=== PATIENT | male | born 1970 | race Two or more races ===

== ENCOUNTER → 2017-08-26 | Outpatient (CLI) | payer MEDICAID | END | disposition home or self-care (01) | LOC: Rad HDHVI 08:43 | PROVIDERS: ATTEND Internal Medicine | DX: I07.1 Rheumatic tricuspid insufficiency (principal); R94.31 Abnormal electrocardiogram [ECG] [EKG]; R53.1 Weakness | CPT/HCPCS: 93306 ==

== ENCOUNTER → 2019-04-25 | Outpatient (CLI) | payer MEDICAID | END | disposition home or self-care (01) | LOC: Rad HDHVI 10:47 | PROVIDERS: ATTEND Internal Medicine | DX: R94.31 Abnormal electrocardiogram [ECG] [EKG] (principal); R53.1 Weakness; I10 Essential (primary) hypertension | CPT/HCPCS: 93880 ==

== ENCOUNTER 2020-03-07 16:36 | Inpatient (IN) | payer MEDICARE, MEDICAID ==
[~2020-03-07] VITALS: Ht 172.7 cm; Wt 82.3 kg
[2020-03-07 18:31] LABS: Basophils # (auto) 0.1 10 ^3/uL (0-0.2); Eosinophils # (auto) 0.2 10 ^3/uL (0-0.8); Lymphocytes # (auto) 1.6 10 ^3/uL (0.4-5.4)
[2020-03-07 18:33] LABS: Basophils % (auto) 0.7 % (0.0-2.0); Eosinophils % (auto) 1.3 % (0.0-7.0); Hematocrit 44.1 % (41.0-53.0); Hemoglobin 14.5 g/dL (13.5-17.5); Mean Corpuscular Hemoglobin 29.7 pg (28.0-32.0); Mean Corpuscular Hgb Conc. 32.8 g/dL (32.0-36.0); Mean Corpuscular Volume 90.4 fL (80.0-100.0); Monocytes # (auto) 0.9 10 ^3/uL (0-1.3); Monocytes % (auto) 6.9 % (0.0-12.0); Neutrophils # (auto) 10.5 10 ^3/uL (1.6-8.6); Neutrophils % (auto) 79.1 % (37.0-80.0); Red Blood Cells 4.87 10^6/uL (4.5-5.90); Red Cell Distribution Width 14.1 % (11.8-14.3); White Blood Cell 13.3 10^3/uL (4.4-10.8)
[2020-03-07 18:47] LABS: Albumin 2.9 g/dL (3.4-5.0); BUN/Creatinine Ratio 16.1; Calcium 9.7 mg/dL (8.5-10.1); Potassium 4.1 mmol/L (3.5-5.1)
[2020-03-07 18:49] LABS: Bilirubin, Total 0.6 mg/dL (0.2-1.0); Total Protein 8.9 g/dL (6.4-8.2)
[2020-03-07] MEDS ORDERED: DOXYCYCLINE 100MG/250ML 250 ML IV ONE (22:15)
[2020-03-07] MEDS ORDERED: DexAMETHasone SOD PHOS 10MG/1ML VIAL INJ IV ONE (22:15)
[2020-03-08] MEDS ORDERED: ONDANSETRON HCL 4 MG/2 ML VIAL ONE (00:05)
[2020-03-08] MEDS ORDERED: MORPHINE SULFATE INJECTION 2 MG/ML SYRG ONE (00:05)
[2020-03-08] MEDS ORDERED: DEXTROSE (50%) 50ML SYRG IV PRN (00:30)
[2020-03-08] MEDS ORDERED: TEMAZEPAM 15 MG CAP PO PRN (00:30)
[2020-03-08] MEDS ORDERED: ACETAMINOPHEN 325 MG TAB PO PRN (00:30)
[2020-03-08] MEDS ORDERED: NITROGLYCERIN 0.4 MG SL TAB SL PRN (00:30)
[2020-03-08] MEDS ORDERED: ONDANSETRON HCL 4 MG/2 ML VIAL IV PRN (00:30)
[2020-03-08] MEDS ORDERED: MORPHINE SULFATE INJECTION 2 MG/ML SYRG IV PRN (00:30)
[2020-03-08] MEDS ORDERED: ONDANSETRON HCL 4 MG/2 ML VIAL IV ONE (00:45)
[2020-03-08] MEDS ORDERED: MORPHINE SULFATE INJECTION 2 MG/ML SYRG IV ONE (00:45)
[2020-03-08 01:28] LABS: Magnesium 2.2 mg/dL (1.6-2.6)
[2020-03-08 01:37] LABS: CRP High Sensitivity 8.53 mg/dL (< 0.3)
[2020-03-08] MEDS: InsuLIN REG 1unit/0.01ml Soln (100units/ml) SC SCH ×3 (07:00→22:00)
[2020-03-08] MEDS ORDERED: ENOXAPARIN SOD 40 MG/0.4 ML SYRINGE SC SCH (10:00)
[2020-03-08] MEDS ORDERED: CHOLECALCIFEROL (VITD3) 2,000 UNIT CAP/TAB PO SCH (10:00)
[2020-03-08] MEDS ORDERED: DOXYCYCLINE 100MG/250ML 250 ML IV SCH (10:00)
[2020-03-08] MEDS: DexAMETHasone SOD PHOS 10MG/1ML VIAL INJ IV SCH (10:08)
[2020-03-08] MEDS: amLODIPine BESYLATE 5 MG TAB PO SCH (10:08)
[2020-03-08] MEDS: ZINC SULFATE 220mg CAP or TAB PO SCH (10:08)
[2020-03-08] MEDS: ASCORBIC ACID 1,000 MG TAB PO SCH (10:08)
[2020-03-08] MEDS: ACCU-CHEK COMFORT CURVE STRIP VI SCH ×3 (10:09→19:45)
[2020-03-08] MEDS ORDERED: REMDESIVIR PER PHARMACY 0 ML IV SCH (11:15)
[2020-03-08] MEDS ORDERED: cefTRIAXone 1GM/50ML D5W 50 ML IV ONE (11:15)
[2020-03-08 12:12] LABS: Albumin 2.6 g/dL (3.4-5.0); Calcium 9.9 mg/dL (8.5-10.1); Potassium 4.7 mmol/L (3.5-5.1)
[2020-03-08 12:16] LABS: BUN/Creatinine Ratio 18.8; Bilirubin, Total 0.6 mg/dL (0.2-1.0); Total Protein 8.5 g/dL (6.4-8.2)
[2020-03-08] MEDS ORDERED: FUROSEMIDE 20 MG/2 ML VIAL IV ONE (14:45)
[2020-03-08] MEDS ORDERED: PIPERACILLIN-TAZO 4.5GM 100 ML IV ONE (14:45)
[2020-03-08] MEDS ORDERED: PIPERACILLIN-TAZO 4.5GM 100 ML IV SCH (22:00)
[2020-03-08] MEDS ORDERED: DOXYCYCLINE 100 MG TAB/CAP PO SCH (22:00)
[2020-03-08] MEDS: ENOXAPARIN SOD 40 MG/0.4 ML SYRINGE SC SCH (23:45)
[2020-03-08] MEDS: ERGOCALCIFEROL 50,000 UNIT(1.25MG) CAP PO SCH (23:49)
[2020-03-09] MEDS: ACCU-CHEK COMFORT CURVE STRIP VI SCH ×5 (00:06→17:21)
[2020-03-09] MEDS: InsuLIN REG 1unit/0.01ml Soln (100units/ml) SC SCH ×5 (00:06→22:09)
[2020-03-09 05:00] VITALS: BP 118/88
[2020-03-09 06:04] VITALS: BP 143/92
[2020-03-09] MEDS ORDERED: ASPI-543 PO (06:22)
[2020-03-09] MEDS ORDERED: FENO134C PO (06:22)
[2020-03-09] MEDS ORDERED: ALLO300T2 PO (06:22)
[2020-03-09] MEDS ORDERED: LISI20TA28 PO (06:22)
[2020-03-09] MEDS ORDERED: AZIT250T8 PO (06:22)
[2020-03-09] MEDS ORDERED: METF-371 PO (06:22)
[2020-03-09] MEDS ORDERED: AML5T PO (06:22)
[2020-03-09 08:00] VITALS: BP 114/81
[2020-03-09 08:50] LABS: Eosinophils # (auto) 0 10 ^3/uL (0-0.8); Neutrophils # (auto) 17.6 10 ^3/uL (1.6-8.6)
[2020-03-09 08:51] LABS: Basophils # (auto) 0.2 10 ^3/uL (0-0.2); Basophils % (auto) 0.8 % (0.0-2.0); Hematocrit 41.6 % (41.0-53.0); Hemoglobin 13.9 g/dL (13.5-17.5); Lymphocytes # (auto) 1.5 10 ^3/uL (0.4-5.4); Lymphocytes % (auto) 7.1 % (10.0-50.0); Mean Corpuscular Hemoglobin 29.6 pg (28.0-32.0); Mean Corpuscular Hgb Conc. 33.4 g/dL (32.0-36.0); Mean Corpuscular Volume 88.4 fL (80.0-100.0); Monocytes # (auto) 1.3 10 ^3/uL (0-1.3); Monocytes % (auto) 6.4 % (0.0-12.0); Neutrophils % (auto) 85.7 % (37.0-80.0); Nucleated Red Blood Cells % 0.1 %; Red Blood Cells 4.71 10^6/uL (4.5-5.90); Red Cell Distribution Width 13.9 % (11.8-14.3); White Blood Cell 20.5 10^3/uL (4.4-10.8)
[2020-03-09] MEDS ORDERED: cefTRIAXone 1GM/50ML D5W 50 ML IV SCH (09:00)
[2020-03-09 09:06] LABS: Albumin 2.7 g/dL (3.4-5.0); Potassium 4.4 mmol/L (3.5-5.1)
[2020-03-09 09:10] LABS: BUN/Creatinine Ratio 23.1; Bilirubin, Total 0.7 mg/dL (0.2-1.0); Total Protein 8.7 g/dL (6.4-8.2)
[2020-03-09] MEDS: DexAMETHasone SOD PHOS 10MG/1ML VIAL INJ IV SCH (11:19)
[2020-03-09] MEDS: FUROSEMIDE 20 MG/2 ML VIAL IV SCH (11:20)
[2020-03-09] MEDS: ZINC SULFATE 220mg CAP or TAB PO SCH (11:21)
[2020-03-09] MEDS: ASCORBIC ACID 1,000 MG TAB PO SCH (11:22)
[2020-03-09] MEDS: amLODIPine BESYLATE 5 MG TAB PO SCH (11:22)
[2020-03-09] MEDS: ENOXAPARIN SOD 40 MG/0.4 ML SYRINGE SC SCH ×2 (11:23→22:11)
[2020-03-09 11:35] LABS: Urine WBC None Seen /hpf (0 - 3)
[2020-03-09 11:57] LABS: Urine Amorphous Crystal FEW /hpf (None Seen); Urine Bacteria NONE SEEN /hpf (None Seen); Urine Blood Negative /uL (Negative); Urine Mucus FEW (None Seen); Urine Specific Gravity 1.018 (1.001-1.035)
[2020-03-09 12:00] LABS: Alcohol, Urine < 3.0 mg/dL (0-10); Amphetamine Screen, Urine NEGATIVE (NEGATIVE); Benzodiazephine Screen, Urine NEGATIVE (NEGATIVE); Cannabinoid Screen, Urine NEGATIVE (NEGATIVE); Cocaine Screen, Urine NEGATIVE (NEGATIVE); Sodium Urine 83 mmol/L (40-220)
[2020-03-09 12:08] LABS: Barbiturate Scree,Urine NEGATIVE (NEGATIVE); Creatinine, Urine 90 mg/dL (30.0-125.0); Opiate Scree,Urine NEGATIVE (NEGATIVE); Phencyclidine Screen, Urine NEGATIVE (NEGATIVE)
[2020-03-09] MEDS ORDERED: PIPERACILLIN-TAZO 4.5GM 100 ML IV ONE (14:45)
[2020-03-09] MEDS ORDERED: DOXYCYCLINE 100 MG TAB/CAP PO ONE (15:00)
[2020-03-09 16:00] VITALS: BP 115/77
[2020-03-09] MEDS ORDERED: REMDESIVIR 200 MG in NS 210ml LOADING DOSE ADULT IV ONE (16:45)
[2020-03-09] MEDS: DOXYCYCLINE 100 MG TAB/CAP PO SCH (22:10)
[2020-03-09] MEDS: PIPERACILLIN-TAZO 4.5GM 100 ML IV SCH (22:10)
[2020-03-09 22:45] VITALS: BP 109/78
[2020-03-10] VITALS: BP 99/61
[2020-03-10 04:44] VITALS: BP 105/71
[2020-03-10] MEDS: PIPERACILLIN-TAZO 4.5GM 100 ML IV SCH ×3 (06:16→22:00)
[2020-03-10] MEDS: InsuLIN REG 1unit/0.01ml Soln (100units/ml) SC SCH ×4 (06:16→22:04)
[2020-03-10] MEDS: ACCU-CHEK COMFORT CURVE STRIP VI SCH ×4 (06:16→22:01)
[2020-03-10 06:20] LABS: INR 1.12 (0.9-1.15)
[2020-03-10 06:28] LABS: Potassium 4.5 mmol/L (3.5-5.1)
[2020-03-10 06:49] LABS: Albumin 2.3 g/dL (3.4-5.0); BUN/Creatinine Ratio 24.7; Bilirubin, Total 0.7 mg/dL (0.2-1.0); Calcium 10.2 mg/dL (8.5-10.1); Total Protein 8.2 g/dL (6.4-8.2)
[2020-03-10 08:00] VITALS: BP 102/74
[2020-03-10] MEDS: FUROSEMIDE 20 MG/2 ML VIAL IV SCH (09:34)
[2020-03-10] MEDS: DexAMETHasone SOD PHOS 10MG/1ML VIAL INJ IV SCH (09:34)
[2020-03-10] MEDS: ZINC SULFATE 220mg CAP or TAB PO SCH (09:34)
[2020-03-10] MEDS: ENOXAPARIN SOD 40 MG/0.4 ML SYRINGE SC SCH ×2 (09:35→22:01)
[2020-03-10] MEDS: ASCORBIC ACID 1,000 MG TAB PO SCH (09:35)
[2020-03-10] MEDS: amLODIPine BESYLATE 5 MG TAB PO SCH (09:35)
[2020-03-10] MEDS: DOXYCYCLINE 100 MG TAB/CAP PO SCH ×2 (09:35→22:00)
[2020-03-10 16:00] VITALS: BP 116/75
[2020-03-10] MEDS: REMDESIVIR 100 MG in SODIUM CHL 0.9% 250 ML IV SCH (16:38)
[2020-03-11] VITALS: BP 111/80
[2020-03-11 02:54] VITALS: BP 118/82
[2020-03-11 03:11] VITALS: BP 117/81
[2020-03-11 04:06] VITALS: BP 101/66
[2020-03-11] MEDS: PIPERACILLIN-TAZO 4.5GM 100 ML IV SCH ×3 (05:49→21:57)
[2020-03-11 06:29] LABS: Potassium 3.8 mmol/L (3.5-5.1)
[2020-03-11] MEDS: ACCU-CHEK COMFORT CURVE STRIP VI SCH ×4 (06:32→21:58)
[2020-03-11] MEDS: InsuLIN REG 1unit/0.01ml Soln (100units/ml) SC SCH ×4 (06:37→21:59)
[2020-03-11 06:47] LABS: Albumin 2.4 g/dL (3.4-5.0); BUN/Creatinine Ratio 30.1; Bilirubin, Total 0.8 mg/dL (0.2-1.0); Calcium 10.4 mg/dL (8.5-10.1); Total Protein 8.2 g/dL (6.4-8.2)
[2020-03-11 08:00] VITALS: BP 119/73
[2020-03-11] MEDS: DOXYCYCLINE 100 MG TAB/CAP PO SCH ×2 (10:19→21:58)
[2020-03-11] MEDS: amLODIPine BESYLATE 5 MG TAB PO SCH (10:19)
[2020-03-11] MEDS: ZINC SULFATE 220mg CAP or TAB PO SCH (10:19)
[2020-03-11] MEDS: ENOXAPARIN SOD 40 MG/0.4 ML SYRINGE SC SCH ×2 (10:20→21:58)
[2020-03-11] MEDS: DexAMETHasone SOD PHOS 10MG/1ML VIAL INJ IV SCH (10:20)
[2020-03-11] MEDS: ASCORBIC ACID 1,000 MG TAB PO SCH (10:20)
[2020-03-11] MEDS: REMDESIVIR 100 MG in SODIUM CHL 0.9% 250 ML IV SCH (15:57)
[2020-03-11 16:01] VITALS: BP 126/88
[2020-03-12] VITALS: BP 114/79
[2020-03-12] MEDS: InsuLIN REG 1unit/0.01ml Soln (100units/ml) SC SCH ×4 (06:22→22:00)
[2020-03-12] MEDS: ACCU-CHEK COMFORT CURVE STRIP VI SCH ×4 (06:22→22:00)
[2020-03-12 06:28] LABS: Basophils # (auto) 0 10 ^3/uL (0-0.2); Basophils % (auto) 0.3 % (0.0-2.0); Eosinophils # (auto) 0.1 10 ^3/uL (0-0.8)
[2020-03-12 06:36] LABS: Hematocrit 40.3 % (41.0-53.0); Hemoglobin 13.7 g/dL (13.5-17.5); Lymphocytes % (auto) 14.4 % (10.0-50.0); Mean Corpuscular Hemoglobin 29.7 pg (28.0-32.0); Mean Corpuscular Volume 87.4 fL (80.0-100.0); Monocytes # (auto) 1.4 10 ^3/uL (0-1.3); Monocytes % (auto) 10.1 % (0.0-12.0); Neutrophils # (auto) 10.3 10 ^3/uL (1.6-8.6); Neutrophils % (auto) 74.2 % (37.0-80.0); Red Blood Cells 4.61 10^6/uL (4.5-5.90); White Blood Cell 13.9 10^3/uL (4.4-10.8)
[2020-03-12] MEDS: PIPERACILLIN-TAZO 4.5GM 100 ML IV SCH ×3 (06:52→22:46)
[2020-03-12 06:55] LABS: Potassium 3.6 mmol/L (3.5-5.1)
[2020-03-12 07:08] LABS: Albumin 2.4 g/dL (3.4-5.0); BUN/Creatinine Ratio 27.7; Bilirubin, Total 0.8 mg/dL (0.2-1.0); CRP High Sensitivity 17.2 mg/dL (< 0.3); Calcium 10.1 mg/dL (8.5-10.1); Total Protein 8.2 g/dL (6.4-8.2)
[2020-03-12 08:00] VITALS: BP 123/82
[2020-03-12] MEDS: amLODIPine BESYLATE 5 MG TAB PO SCH (11:18)
[2020-03-12] MEDS: DexAMETHasone SOD PHOS 10MG/1ML VIAL INJ IV SCH (11:18)
[2020-03-12] MEDS: ZINC SULFATE 220mg CAP or TAB PO SCH (11:18)
[2020-03-12] MEDS: ENOXAPARIN SOD 40 MG/0.4 ML SYRINGE SC SCH ×2 (11:19→22:47)
[2020-03-12] MEDS: DOXYCYCLINE 100 MG TAB/CAP PO SCH ×2 (11:19→22:47)
[2020-03-12] MEDS: ASCORBIC ACID 1,000 MG TAB PO SCH (11:19)
[2020-03-12] MEDS: REMDESIVIR 100 MG in SODIUM CHL 0.9% 250 ML IV SCH (15:50)
[2020-03-12] MEDS: guaiFENesin-DM 100/10mg/5ml SYR PO PRN (15:57)
[2020-03-12 16:25] VITALS: BP 115/82
[2020-03-13] VITALS: BP 111/78
[2020-03-13] MEDS: PIPERACILLIN-TAZO 4.5GM 100 ML IV SCH ×3 (05:49→21:08)
[2020-03-13] MEDS: InsuLIN REG 1unit/0.01ml Soln (100units/ml) SC SCH ×4 (06:12→21:07)
[2020-03-13] MEDS: ACCU-CHEK COMFORT CURVE STRIP VI SCH ×4 (06:12→21:08)
[2020-03-13 08:00] VITALS: BP 118/76
[2020-03-13 08:58] LABS: Potassium 3.7 mmol/L (3.5-5.1)
[2020-03-13] MEDS: ZINC SULFATE 220mg CAP or TAB PO SCH (09:48)
[2020-03-13] MEDS: ASCORBIC ACID 1,000 MG TAB PO SCH (09:48)
[2020-03-13] MEDS: DOXYCYCLINE 100 MG TAB/CAP PO SCH ×2 (09:48→21:08)
[2020-03-13] MEDS: amLODIPine BESYLATE 5 MG TAB PO SCH (09:48)
[2020-03-13] MEDS: ENOXAPARIN SOD 40 MG/0.4 ML SYRINGE SC SCH ×2 (09:48→21:08)
[2020-03-13] MEDS: DexAMETHasone SOD PHOS 10MG/1ML VIAL INJ IV SCH (09:48)
[2020-03-13 09:50] LABS: Albumin 2.3 g/dL (3.4-5.0); BUN/Creatinine Ratio 28.8; Bilirubin, Total 0.6 mg/dL (0.2-1.0); Calcium 9.8 mg/dL (8.5-10.1); Total Protein 7.8 g/dL (6.4-8.2)
[2020-03-13 16:00] VITALS: BP 110/79
[2020-03-13] MEDS: REMDESIVIR 100 MG in SODIUM CHL 0.9% 250 ML IV SCH (17:59)
[2020-03-14] VITALS: BP 116/81
[2020-03-14] MEDS: PIPERACILLIN-TAZO 4.5GM 100 ML IV SCH ×3 (06:00→21:25)
[2020-03-14] MEDS: ACCU-CHEK COMFORT CURVE STRIP VI SCH ×4 (06:09→21:26)
[2020-03-14] MEDS: InsuLIN REG 1unit/0.01ml Soln (100units/ml) SC SCH ×4 (06:27→21:24)
[2020-03-14 06:29] LABS: Basophils # (auto) 0.1 10 ^3/uL (0-0.2); Hemoglobin 13.5 g/dL (13.5-17.5); Lymphocytes # (auto) 1.4 10 ^3/uL (0.4-5.4); Monocytes # (auto) 1.2 10 ^3/uL (0-1.3); Neutrophils # (auto) 11.5 10 ^3/uL (1.6-8.6); Nucleated Red Blood Cells % 0.1 %
[2020-03-14 06:31] LABS: Eosinophils # (auto) 0.1 10 ^3/uL (0-0.8); Hematocrit 39.4 % (41.0-53.0); Lymphocytes % (auto) 9.5 % (10.0-50.0); Mean Corpuscular Hemoglobin 29.6 pg (28.0-32.0); Mean Corpuscular Hgb Conc. 34.2 g/dL (32.0-36.0); Mean Corpuscular Volume 86.5 fL (80.0-100.0); Monocytes % (auto) 8.4 % (0.0-12.0); Neutrophils % (auto) 80.1 % (37.0-80.0); Red Blood Cells 4.55 10^6/uL (4.5-5.90); Red Cell Distribution Width 13.9 % (11.8-14.3); White Blood Cell 14.4 10^3/uL (4.4-10.8)
[2020-03-14] MEDS: guaiFENesin-DM 100/10mg/5ml SYR PO PRN (07:40)
[2020-03-14 08:00] VITALS: BP 105/79
[2020-03-14 08:18] LABS: Potassium 3.8 mmol/L (3.5-5.1)
[2020-03-14] MEDS: DOXYCYCLINE 100 MG TAB/CAP PO SCH ×2 (08:53→21:25)
[2020-03-14] MEDS: amLODIPine BESYLATE 5 MG TAB PO SCH (08:53)
[2020-03-14] MEDS: ASCORBIC ACID 1,000 MG TAB PO SCH (08:53)
[2020-03-14] MEDS: ENOXAPARIN SOD 40 MG/0.4 ML SYRINGE SC SCH ×2 (08:54→21:26)
[2020-03-14] MEDS: ZINC SULFATE 220mg CAP or TAB PO SCH (08:54)
[2020-03-14] MEDS: DexAMETHasone SOD PHOS 10MG/1ML VIAL INJ IV SCH (08:54)
[2020-03-14 09:01] LABS: Albumin 2.2 g/dL (3.4-5.0); BUN/Creatinine Ratio 28.4; Bilirubin, Total 0.5 mg/dL (0.2-1.0); Calcium 10.1 mg/dL (8.5-10.1); Total Protein 7.6 g/dL (6.4-8.2)
[2020-03-14] MEDS ORDERED: FUROSEMIDE 20 MG/2 ML VIAL IV ONE (09:15)
[2020-03-14 16:00] VITALS: BP 115/82
[2020-03-15] VITALS: BP 107/83
[2020-03-15] MEDS: ACCU-CHEK COMFORT CURVE STRIP VI SCH ×3 (06:07→17:46)
[2020-03-15] MEDS: PIPERACILLIN-TAZO 4.5GM 100 ML IV SCH ×3 (06:07→22:04)
[2020-03-15] MEDS: InsuLIN REG 1unit/0.01ml Soln (100units/ml) SC SCH ×3 (06:16→17:47)
[2020-03-15 08:00] VITALS: BP 116/81
[2020-03-15] MEDS: ENOXAPARIN SOD 40 MG/0.4 ML SYRINGE SC SCH ×2 (10:01→22:05)
[2020-03-15] MEDS: DOXYCYCLINE 100 MG TAB/CAP PO SCH ×2 (10:01→22:05)
[2020-03-15] MEDS: ZINC SULFATE 220mg CAP or TAB PO SCH (10:01)
[2020-03-15] MEDS: DexAMETHasone SOD PHOS 10MG/1ML VIAL INJ IV SCH (10:01)
[2020-03-15] MEDS: amLODIPine BESYLATE 5 MG TAB PO SCH (10:01)
[2020-03-15] MEDS: ASCORBIC ACID 1,000 MG TAB PO SCH (10:01)
[2020-03-15] MEDS: ERGOCALCIFEROL 50,000 UNIT(1.25MG) CAP PO SCH (15:50)
[2020-03-15 16:00] VITALS: BP 115/87
[2020-03-15] MEDS ORDERED: DEXTROSE (50%) 50ML SYRG IV PRN (17:00)
[2020-03-15] MEDS ORDERED: FUROSEMIDE 20 MG/2 ML VIAL IV ONE (17:00)
[2020-03-15] MEDS: INSULIN LANTUS (GLARGINE) 1 /0.01ml (100units/ml) SC SCH (22:06)
[2020-03-16] VITALS: BP 109/74
[2020-03-16] MEDS: ACCU-CHEK COMFORT CURVE STRIP VI SCH ×4 (00:32→17:14)
[2020-03-16] MEDS: PIPERACILLIN-TAZO 4.5GM 100 ML IV SCH ×3 (06:15→22:36)
[2020-03-16 06:19] LABS: Basophils # (auto) 0.1 10 ^3/uL (0-0.2); Eosinophils # (auto) 0.1 10 ^3/uL (0-0.8); Mean Corpuscular Volume 86.2 fL (80.0-100.0); Neutrophils # (auto) 12.9 10 ^3/uL (1.6-8.6)
[2020-03-16 06:20] LABS: Basophils % (auto) 0.7 % (0.0-2.0); Eosinophils % (auto) 0.8 % (0.0-7.0); Hematocrit 41.8 % (41.0-53.0); Hemoglobin 14.5 g/dL (13.5-17.5); Lymphocytes # (auto) 1.6 10 ^3/uL (0.4-5.4); Lymphocytes % (auto) 10.1 % (10.0-50.0); Mean Corpuscular Hemoglobin 29.9 pg (28.0-32.0); Mean Corpuscular Hgb Conc. 34.7 g/dL (32.0-36.0); Monocytes # (auto) 1.3 10 ^3/uL (0-1.3); Monocytes % (auto) 7.9 % (0.0-12.0); Neutrophils % (auto) 80.5 % (37.0-80.0); Red Blood Cells 4.86 10^6/uL (4.5-5.90); Red Cell Distribution Width 13.8 % (11.8-14.3)
[2020-03-16] MEDS: InsuLIN REG 1unit/0.01ml Soln (100units/ml) SC SCH ×4 (06:36→17:19)
[2020-03-16 06:42] LABS: Potassium 3.8 mmol/L (3.5-5.1)
[2020-03-16 07:09] LABS: BUN/Creatinine Ratio 28.1; Calcium 9.8 mg/dL (8.5-10.1)
[2020-03-16 08:00] VITALS: BP 110/68
[2020-03-16] MEDS: DexAMETHasone SOD PHOS 10MG/1ML VIAL INJ IV SCH (08:56)
[2020-03-16] MEDS: FUROSEMIDE 20 MG/2 ML VIAL IV SCH (08:57)
[2020-03-16] MEDS: ZINC SULFATE 220mg CAP or TAB PO SCH (08:58)
[2020-03-16] MEDS: ASCORBIC ACID 1,000 MG TAB PO SCH (08:58)
[2020-03-16] MEDS: amLODIPine BESYLATE 5 MG TAB PO SCH (08:59)
[2020-03-16] MEDS: DOXYCYCLINE 100 MG TAB/CAP PO SCH ×2 (08:59→22:36)
[2020-03-16] MEDS: ENOXAPARIN SOD 40 MG/0.4 ML SYRINGE SC SCH ×2 (09:02→22:37)
[2020-03-16] MEDS: INSULIN LANTUS (GLARGINE) 1 /0.01ml (100units/ml) SC SCH ×2 (09:14→22:37)
[2020-03-16 16:00] VITALS: BP 109/78
[2020-03-17] VITALS: BP 113/88
[2020-03-17] MEDS: ACCU-CHEK COMFORT CURVE STRIP VI SCH ×5 (00:15→23:53)
[2020-03-17] MEDS: InsuLIN REG 1unit/0.01ml Soln (100units/ml) SC SCH ×5 (00:16→23:54)
[2020-03-17] MEDS: PIPERACILLIN-TAZO 4.5GM 100 ML IV SCH ×3 (06:03→21:46)
[2020-03-17 07:11] LABS: Calcium 9.9 mg/dL (8.5-10.1); Magnesium 1.7 mg/dL (1.6-2.6); Potassium 3.4 mmol/L (3.5-5.1)
[2020-03-17 07:14] LABS: Basophils # (auto) 0.1 10 ^3/uL (0-0.2); Eosinophils # (auto) 0.2 10 ^3/uL (0-0.8); Mean Corpuscular Hemoglobin 29.3 pg (28.0-32.0); White Blood Cell 16.4 10^3/uL (4.4-10.8)
[2020-03-17 07:16] LABS: Basophils % (auto) 0.3 % (0.0-2.0); Eosinophils % (auto) 1.1 % (0.0-7.0); Hematocrit 41.4 % (41.0-53.0); Lymphocytes # (auto) 1.9 10 ^3/uL (0.4-5.4); Lymphocytes % (auto) 11.6 % (10.0-50.0); Mean Corpuscular Hgb Conc. 33.8 g/dL (32.0-36.0); Mean Corpuscular Volume 86.8 fL (80.0-100.0); Monocytes # (auto) 1.2 10 ^3/uL (0-1.3); Monocytes % (auto) 7.1 % (0.0-12.0); Neutrophils # (auto) 13.1 10 ^3/uL (1.6-8.6); Neutrophils % (auto) 79.9 % (37.0-80.0); Nucleated Red Blood Cells % 0.1 %; Red Blood Cells 4.77 10^6/uL (4.5-5.90)
[2020-03-17 07:26] LABS: Albumin 2.1 g/dL (3.4-5.0); BUN/Creatinine Ratio 29.3; Bilirubin, Total 0.6 mg/dL (0.2-1.0); CRP High Sensitivity 9.15 mg/dL (< 0.3); Total Protein 7.8 g/dL (6.4-8.2)
[2020-03-17 08:00] VITALS: BP 106/82
[2020-03-17] MEDS ORDERED: POTASSIUM CHL 20 Meq TABLET PO ONE (09:00)
[2020-03-17] MEDS: DexAMETHasone SOD PHOS 10MG/1ML VIAL INJ IV SCH (09:25)
[2020-03-17] MEDS: FUROSEMIDE 20 MG/2 ML VIAL IV SCH (09:26)
[2020-03-17] MEDS: ZINC SULFATE 220mg CAP or TAB PO SCH (09:26)
[2020-03-17] MEDS: DOXYCYCLINE 100 MG TAB/CAP PO SCH ×2 (09:27→21:46)
[2020-03-17] MEDS: amLODIPine BESYLATE 5 MG TAB PO SCH (09:27)
[2020-03-17] MEDS: ASCORBIC ACID 1,000 MG TAB PO SCH (09:27)
[2020-03-17] MEDS: ENOXAPARIN SOD 40 MG/0.4 ML SYRINGE SC SCH ×2 (09:28→21:46)
[2020-03-17] MEDS: INSULIN LANTUS (GLARGINE) 1 /0.01ml (100units/ml) SC SCH ×2 (09:38→21:47)
[2020-03-17 16:00] VITALS: BP 104/72
[2020-03-18 05:27] VITALS: BP 110/76
[2020-03-18] MEDS: InsuLIN REG 1unit/0.01ml Soln (100units/ml) SC SCH ×4 (06:00→23:52)
[2020-03-18] MEDS: ACCU-CHEK COMFORT CURVE STRIP VI SCH ×4 (06:04→23:52)
[2020-03-18] MEDS: PIPERACILLIN-TAZO 4.5GM 100 ML IV SCH ×3 (06:04→22:04)
[2020-03-18 08:00] VITALS: BP 120/69
[2020-03-18] MEDS: DexAMETHasone SOD PHOS 10MG/1ML VIAL INJ IV SCH (09:52)
[2020-03-18] MEDS: ZINC SULFATE 220mg CAP or TAB PO SCH (09:53)
[2020-03-18] MEDS: DOXYCYCLINE 100 MG TAB/CAP PO SCH ×2 (09:53→22:03)
[2020-03-18] MEDS: amLODIPine BESYLATE 5 MG TAB PO SCH (09:53)
[2020-03-18] MEDS: FUROSEMIDE 20 MG/2 ML VIAL IV SCH (09:53)
[2020-03-18] MEDS: ENOXAPARIN SOD 40 MG/0.4 ML SYRINGE SC SCH ×2 (09:54→22:03)
[2020-03-18] MEDS: ASCORBIC ACID 1,000 MG TAB PO SCH (09:54)
[2020-03-18] MEDS: INSULIN LANTUS (GLARGINE) 1 /0.01ml (100units/ml) SC SCH ×2 (10:03→22:04)
[2020-03-18] MEDS ORDERED: BUDESONIDE (INHALATION) 0.5 MG/2 ML NEB NEB ONE (12:15)
[2020-03-18] MEDS: ACETYLCYSTEINE 20%(200MG/ML) SOL 4ML NEB SCH ×2 (14:00→19:43)
[2020-03-18 15:54] VITALS: BP 105/68
[2020-03-18] MEDS: BUDESONIDE (INHALATION) 0.5 MG/2 ML NEB NEB SCH (19:43)
[2020-03-18] MEDS: ALBUTEROL SULF 2.5 MG/0.5ML(0.5%) NEB SOLN NEB PRN (19:43)
[2020-03-19] VITALS: BP 109/73
[2020-03-19] MEDS: PIPERACILLIN-TAZO 4.5GM 100 ML IV SCH ×3 (05:39→21:37)
[2020-03-19] MEDS: InsuLIN REG 1unit/0.01ml Soln (100units/ml) SC SCH ×4 (05:39→23:56)
[2020-03-19] MEDS: ACCU-CHEK COMFORT CURVE STRIP VI SCH ×4 (05:39→23:56)
[2020-03-19] MEDS: ALBUTEROL SULF 2.5 MG/0.5ML(0.5%) NEB SOLN NEB PRN ×2 (06:11→14:01)
[2020-03-19] MEDS: BUDESONIDE (INHALATION) 0.5 MG/2 ML NEB NEB SCH (06:11)
[2020-03-19] MEDS: ACETYLCYSTEINE 20%(200MG/ML) SOL 4ML NEB SCH ×2 (06:11→14:01)
[2020-03-19 06:36] LABS: Basophils # (auto) 0.1 10 ^3/uL (0-0.2); Eosinophils # (auto) 0.1 10 ^3/uL (0-0.8)
[2020-03-19 06:38] LABS: Basophils % (auto) 0.5 % (0.0-2.0); Eosinophils % (auto) 0.5 % (0.0-7.0); Hematocrit 42.2 % (41.0-53.0); Hemoglobin 14.5 g/dL (13.5-17.5); Lymphocytes # (auto) 2.5 10 ^3/uL (0.4-5.4); Lymphocytes % (auto) 10.9 % (10.0-50.0); Mean Corpuscular Hemoglobin 29.6 pg (28.0-32.0); Mean Corpuscular Hgb Conc. 34.4 g/dL (32.0-36.0); Mean Corpuscular Volume 86.3 fL (80.0-100.0); Monocytes # (auto) 1.2 10 ^3/uL (0-1.3); Monocytes % (auto) 5.5 % (0.0-12.0); Neutrophils # (auto) 18.7 10 ^3/uL (1.6-8.6); Neutrophils % (auto) 82.6 % (37.0-80.0); Red Cell Distribution Width 13.7 % (11.8-14.3); White Blood Cell 22.6 10^3/uL (4.4-10.8)
[2020-03-19 07:42] LABS: Potassium 3.3 mmol/L (3.5-5.1)
[2020-03-19 08:00] VITALS: BP 112/82
[2020-03-19 08:20] LABS: Albumin 2.3 g/dL (3.4-5.0); BUN/Creatinine Ratio 23.1; Calcium 9.7 mg/dL (8.5-10.1)
[2020-03-19 08:29] LABS: Bilirubin, Total 0.8 mg/dL (0.2-1.0); CRP High Sensitivity 10.1 mg/dL (< 0.3); Total Protein 7.6 g/dL (6.4-8.2)
[2020-03-19] MEDS: ZINC SULFATE 220mg CAP or TAB PO SCH (09:40)
[2020-03-19] MEDS: amLODIPine BESYLATE 5 MG TAB PO SCH (09:40)
[2020-03-19] MEDS: DOXYCYCLINE 100 MG TAB/CAP PO SCH ×2 (09:40→21:38)
[2020-03-19] MEDS: DexAMETHasone SOD PHOS 10MG/1ML VIAL INJ IV SCH (09:40)
[2020-03-19] MEDS: ASCORBIC ACID 1,000 MG TAB PO SCH (09:41)
[2020-03-19] MEDS: INSULIN LANTUS (GLARGINE) 1 /0.01ml (100units/ml) SC SCH ×2 (09:51→21:38)
[2020-03-19] MEDS: ENOXAPARIN SOD 40 MG/0.4 ML SYRINGE SC SCH ×2 (10:09→21:38)
[2020-03-19] MEDS: FUROSEMIDE 20 MG/2 ML VIAL IV SCH (10:09)
[2020-03-19] MEDS ORDERED: POTASSIUM CHL 20 Meq TABLET PO ONE (14:15)
[2020-03-19 16:00] VITALS: BP 111/86
[2020-03-19] MEDS: BUDESONIDE (INHALATION) 180 MCG IH IN SCH (18:28)
[2020-03-19] MEDS: ALBUTEROL SULF HFA 90MCG INH 200DOSE IN PRN (20:07)
[2020-03-20] VITALS: BP 117/84
[2020-03-20] MEDS: InsuLIN REG 1unit/0.01ml Soln (100units/ml) SC SCH ×3 (06:00→18:14)
[2020-03-20] MEDS: PIPERACILLIN-TAZO 4.5GM 100 ML IV SCH ×3 (06:08→22:18)
[2020-03-20] MEDS: ACCU-CHEK COMFORT CURVE STRIP VI SCH ×3 (06:08→17:08)
[2020-03-20] MEDS: ALBUTEROL SULF HFA 90MCG INH 200DOSE IN PRN ×2 (06:09→19:41)
[2020-03-20] MEDS: BUDESONIDE (INHALATION) 180 MCG IH IN SCH ×2 (06:09→19:41)
[2020-03-20 08:00] VITALS: BP 118/86
[2020-03-20] MEDS ORDERED: LORazepam 2MG/ML-1ML VIAL IV PRN (08:15)
[2020-03-20] MEDS: DexAMETHasone SOD PHOS 10MG/1ML VIAL INJ IV SCH (10:12)
[2020-03-20] MEDS: FUROSEMIDE 20 MG/2 ML VIAL IV SCH (10:13)
[2020-03-20] MEDS: POTASSIUM CHLORIDE 8 MEQ TAB PO SCH (10:13)
[2020-03-20] MEDS: ZINC SULFATE 220mg CAP or TAB PO SCH (10:13)
[2020-03-20] MEDS: amLODIPine BESYLATE 5 MG TAB PO SCH (10:14)
[2020-03-20] MEDS: DOXYCYCLINE 100 MG TAB/CAP PO SCH ×2 (10:14→22:18)
[2020-03-20] MEDS: ASCORBIC ACID 1,000 MG TAB PO SCH (10:14)
[2020-03-20] MEDS: ENOXAPARIN SOD 40 MG/0.4 ML SYRINGE SC SCH ×2 (10:15→22:19)
[2020-03-20] MEDS: INSULIN LANTUS (GLARGINE) 1 /0.01ml (100units/ml) SC SCH ×2 (10:16→22:20)
[2020-03-20] MEDS ORDERED: ACETAMINOPHEN 650 mg PER 20.3 mL UD PO ONE (14:30)
[2020-03-20] MEDS ORDERED: diphenhdrAMINE HCL 50 MG/1 ML VL IV ONE (14:30)
[2020-03-20] MEDS ORDERED: methylPREDNISolone SOD SUCC 40 MG/ML VL IV ONE (14:30)
[2020-03-20] MEDS ORDERED: TOCILIZUMAB 400 MG in SODIUM CHL 0.9% 80 ML IV ONE (15:00)
[2020-03-20 16:00] VITALS: BP 98/64
[2020-03-21] VITALS: BP 112/77
[2020-03-21] MEDS: ACCU-CHEK COMFORT CURVE STRIP VI SCH ×4 (00:05→17:40)
[2020-03-21] MEDS: InsuLIN REG 1unit/0.01ml Soln (100units/ml) SC SCH ×5 (00:15→17:41)
[2020-03-21] MEDS: PIPERACILLIN-TAZO 4.5GM 100 ML IV SCH ×3 (05:20→22:01)
[2020-03-21 07:09] LABS: Basophils # (auto) 0 10 ^3/uL (0-0.2); Eosinophils # (auto) 0 10 ^3/uL (0-0.8); Hemoglobin 13.6 g/dL (13.5-17.5); Mean Corpuscular Volume 85.8 fL (80.0-100.0); Monocytes # (auto) 0.8 10 ^3/uL (0-1.3)
[2020-03-21 07:11] LABS: Basophils % (auto) 0.2 % (0.0-2.0); Eosinophils % (auto) 0.1 % (0.0-7.0); Hematocrit 39.8 % (41.0-53.0); Lymphocytes # (auto) 1.3 10 ^3/uL (0.4-5.4); Lymphocytes % (auto) 5.8 % (10.0-50.0); Mean Corpuscular Hemoglobin 29.3 pg (28.0-32.0); Mean Corpuscular Hgb Conc. 34.1 g/dL (32.0-36.0); Monocytes % (auto) 3.6 % (0.0-12.0); Neutrophils # (auto) 20.1 10 ^3/uL (1.6-8.6); Neutrophils % (auto) 90.3 % (37.0-80.0); Red Blood Cells 4.64 10^6/uL (4.5-5.90); Red Cell Distribution Width 13.7 % (11.8-14.3); White Blood Cell 22.3 10^3/uL (4.4-10.8)
[2020-03-21 07:26] LABS: Potassium 3.6 mmol/L (3.5-5.1)
[2020-03-21 07:46] LABS: BUN/Creatinine Ratio 27.3; Bilirubin, Total 0.5 mg/dL (0.2-1.0); CRP High Sensitivity 10.6 mg/dL (< 0.3); Calcium 9.7 mg/dL (8.5-10.1); Magnesium 1.8 mg/dL (1.6-2.6); Total Protein 7.3 g/dL (6.4-8.2)
[2020-03-21] MEDS: BUDESONIDE (INHALATION) 180 MCG IH IN SCH ×2 (07:47→19:32)
[2020-03-21 08:30] VITALS: BP 156/78
[2020-03-21] MEDS ORDERED: diphenhdrAMINE HCL 50 MG/1 ML VL IV ONE (10:00)
[2020-03-21] MEDS ORDERED: ACETAMINOPHEN 650 mg PER 20.3 mL UD PO ONE (10:00)
[2020-03-21] MEDS: FUROSEMIDE 20 MG/2 ML VIAL IV SCH (10:25)
[2020-03-21] MEDS: ASCORBIC ACID 1,000 MG TAB PO SCH (10:26)
[2020-03-21] MEDS: DOXYCYCLINE 100 MG TAB/CAP PO SCH (10:26)
[2020-03-21] MEDS: DexAMETHasone SOD PHOS 10MG/1ML VIAL INJ IV SCH (10:26)
[2020-03-21] MEDS: ZINC SULFATE 220mg CAP or TAB PO SCH (10:26)
[2020-03-21] MEDS: amLODIPine BESYLATE 5 MG TAB PO SCH (10:27)
[2020-03-21] MEDS: POTASSIUM CHLORIDE 8 MEQ TAB PO SCH (10:27)
[2020-03-21] MEDS: ENOXAPARIN SOD 40 MG/0.4 ML SYRINGE SC SCH ×2 (10:28→22:01)
[2020-03-21] MEDS ORDERED: TOCILIZUMAB 400 MG in SODIUM CHL 0.9% 80 ML IV ONE (10:30)
[2020-03-21] MEDS: INSULIN LANTUS (GLARGINE) 1 /0.01ml (100units/ml) SC SCH ×2 (10:31→22:01)
[2020-03-21 16:05] VITALS: BP 119/85
[2020-03-21] MEDS: ALBUTEROL SULF HFA 90MCG INH 200DOSE IN PRN (19:32)
[2020-03-22] VITALS: BP 118/94
[2020-03-22] MEDS: ACCU-CHEK COMFORT CURVE STRIP VI SCH ×5 (00:40→23:14)
[2020-03-22] MEDS: InsuLIN REG 1unit/0.01ml Soln (100units/ml) SC SCH ×5 (00:40→23:15)
[2020-03-22] MEDS: PIPERACILLIN-TAZO 4.5GM 100 ML IV SCH ×3 (06:08→22:32)
[2020-03-22] MEDS: ALBUTEROL SULF HFA 90MCG INH 200DOSE IN PRN ×2 (07:41→20:45)
[2020-03-22] MEDS: BUDESONIDE (INHALATION) 180 MCG IH IN SCH ×2 (07:41→20:45)
[2020-03-22 08:00] VITALS: BP 120/79
[2020-03-22] MEDS: POTASSIUM CHLORIDE 8 MEQ TAB PO SCH (10:33)
[2020-03-22] MEDS: DexAMETHasone SOD PHOS 10MG/1ML VIAL INJ IV SCH (10:33)
[2020-03-22] MEDS: ASCORBIC ACID 1,000 MG TAB PO SCH (10:33)
[2020-03-22] MEDS: amLODIPine BESYLATE 5 MG TAB PO SCH (10:33)
[2020-03-22] MEDS: FUROSEMIDE 20 MG/2 ML VIAL IV SCH (10:34)
[2020-03-22] MEDS: ZINC SULFATE 220mg CAP or TAB PO SCH (10:34)
[2020-03-22] MEDS: INSULIN LANTUS (GLARGINE) 1 /0.01ml (100units/ml) SC SCH ×2 (10:36→23:14)
[2020-03-22] MEDS: ENOXAPARIN SOD 40 MG/0.4 ML SYRINGE SC SCH ×2 (14:48→22:33)
[2020-03-22] MEDS: ERGOCALCIFEROL 50,000 UNIT(1.25MG) CAP PO SCH (14:50)
[2020-03-22 15:55] VITALS: BP 123/75
[2020-03-23] VITALS: BP 116/82
[2020-03-23] MEDS: PIPERACILLIN-TAZO 4.5GM 100 ML IV SCH ×3 (05:57→22:34)
[2020-03-23] MEDS: InsuLIN REG 1unit/0.01ml Soln (100units/ml) SC SCH ×3 (05:58→18:31)
[2020-03-23] MEDS: ACCU-CHEK COMFORT CURVE STRIP VI SCH ×3 (05:58→18:30)
[2020-03-23] MEDS: BUDESONIDE (INHALATION) 180 MCG IH IN SCH ×2 (06:00→19:47)
[2020-03-23 08:00] VITALS: BP 121/80
[2020-03-23] MEDS: DexAMETHasone SOD PHOS 10MG/1ML VIAL INJ IV SCH (10:40)
[2020-03-23] MEDS: POTASSIUM CHLORIDE 8 MEQ TAB PO SCH (10:41)
[2020-03-23] MEDS: ASCORBIC ACID 1,000 MG TAB PO SCH (10:41)
[2020-03-23] MEDS: ENOXAPARIN SOD 40 MG/0.4 ML SYRINGE SC SCH ×2 (10:41→22:34)
[2020-03-23] MEDS: ZINC SULFATE 220mg CAP or TAB PO SCH (10:42)
[2020-03-23] MEDS: FUROSEMIDE 20 MG/2 ML VIAL IV SCH (10:42)
[2020-03-23] MEDS: amLODIPine BESYLATE 5 MG TAB PO SCH (10:43)
[2020-03-23] MEDS: INSULIN LANTUS (GLARGINE) 1 /0.01ml (100units/ml) SC SCH ×2 (10:47→22:50)
[2020-03-23 16:00] VITALS: BP 123/93
[2020-03-23 19:47] VITALS: BP 123/93
[2020-03-23] MEDS: ALBUTEROL SULF HFA 90MCG INH 200DOSE IN PRN (19:47)
[2020-03-23] MEDS: FLORASTOR (S. BOULARDII) 250 MG CAP PO SCH (22:34)
[2020-03-24] VITALS: BP 120/95
[2020-03-24] MEDS: ACCU-CHEK COMFORT CURVE STRIP VI SCH ×4 (00:01→17:12)
[2020-03-24] MEDS: InsuLIN REG 1unit/0.01ml Soln (100units/ml) SC SCH ×4 (00:09→17:11)
[2020-03-24] MEDS: PIPERACILLIN-TAZO 4.5GM 100 ML IV SCH ×3 (06:32→21:57)
[2020-03-24 08:00] VITALS: BP 118/82
[2020-03-24] MEDS: BUDESONIDE (INHALATION) 180 MCG IH IN SCH ×2 (10:24→19:05)
[2020-03-24] MEDS: ALBUTEROL SULF HFA 90MCG INH 200DOSE IN PRN ×2 (10:24→20:49)
[2020-03-24] MEDS: DexAMETHasone SOD PHOS 10MG/1ML VIAL INJ IV SCH (10:32)
[2020-03-24] MEDS: FUROSEMIDE 20 MG/2 ML VIAL IV SCH (10:33)
[2020-03-24] MEDS: ZINC SULFATE 220mg CAP or TAB PO SCH (10:33)
[2020-03-24] MEDS: POTASSIUM CHLORIDE 8 MEQ TAB PO SCH (10:34)
[2020-03-24] MEDS: FLORASTOR (S. BOULARDII) 250 MG CAP PO SCH ×2 (10:34→21:51)
[2020-03-24] MEDS: amLODIPine BESYLATE 5 MG TAB PO SCH (10:35)
[2020-03-24] MEDS: ASCORBIC ACID 1,000 MG TAB PO SCH (10:35)
[2020-03-24] MEDS: ENOXAPARIN SOD 40 MG/0.4 ML SYRINGE SC SCH ×2 (10:36→21:52)
[2020-03-24] MEDS: INSULIN LANTUS (GLARGINE) 1 /0.01ml (100units/ml) SC SCH ×2 (10:36→21:59)
[2020-03-24] MEDS: HYDROcodone-ACET 5/325MG TAB PO PRN (15:34)
[2020-03-24 15:38] LABS: Basophils # (auto) 0.1 10 ^3/uL (0-0.2); Eosinophils # (auto) 0.1 10 ^3/uL (0-0.8); Hemoglobin 15.6 g/dL (13.5-17.5); Mean Corpuscular Volume 85.4 fL (80.0-100.0); Nucleated Red Blood Cells % 0.1 %
[2020-03-24 15:40] LABS: Basophils % (auto) 0.3 % (0.0-2.0); Eosinophils % (auto) 0.4 % (0.0-7.0); Hematocrit 45.2 % (41.0-53.0); Lymphocytes # (auto) 1.1 10 ^3/uL (0.4-5.4); Lymphocytes % (auto) 6.3 % (10.0-50.0); Mean Corpuscular Hemoglobin 29.4 pg (28.0-32.0); Mean Corpuscular Hgb Conc. 34.4 g/dL (32.0-36.0); Monocytes # (auto) 0.3 10 ^3/uL (0-1.3); Neutrophils # (auto) 15.3 10 ^3/uL (1.6-8.6); Red Blood Cells 5.29 10^6/uL (4.5-5.90); White Blood Cell 16.8 10^3/uL (4.4-10.8)
[2020-03-24 16:00] VITALS: BP 123/86
[2020-03-24 16:06] LABS: Albumin 2.5 g/dL (3.4-5.0); Calcium 9.3 mg/dL (8.5-10.1)
[2020-03-24 16:12] LABS: Bilirubin, Total 0.4 mg/dL (0.2-1.0); Total Protein 7.1 g/dL (6.4-8.2)
[2020-03-25] VITALS: BP 119/85
[2020-03-25] MEDS: InsuLIN REG 1unit/0.01ml Soln (100units/ml) SC SCH ×4 (00:18→17:36)
[2020-03-25] MEDS: ACCU-CHEK COMFORT CURVE STRIP VI SCH ×4 (00:27→17:27)
[2020-03-25] MEDS: PIPERACILLIN-TAZO 4.5GM 100 ML IV SCH ×3 (06:15→20:38)
[2020-03-25] MEDS: ALBUTEROL SULF HFA 90MCG INH 200DOSE IN PRN ×2 (07:00→18:43)
[2020-03-25] MEDS: BUDESONIDE (INHALATION) 180 MCG IH IN SCH ×2 (07:00→18:43)
[2020-03-25 08:00] VITALS: BP 107/79
[2020-03-25] MEDS: FUROSEMIDE 20 MG/2 ML VIAL IV SCH (10:00)
[2020-03-25] MEDS: ZINC SULFATE 220mg CAP or TAB PO SCH (10:53)
[2020-03-25] MEDS: DexAMETHasone SOD PHOS 10MG/1ML VIAL INJ IV SCH (10:53)
[2020-03-25] MEDS: ENOXAPARIN SOD 40 MG/0.4 ML SYRINGE SC SCH ×2 (10:54→20:38)
[2020-03-25] MEDS: POTASSIUM CHLORIDE 8 MEQ TAB PO SCH (10:54)
[2020-03-25] MEDS: amLODIPine BESYLATE 5 MG TAB PO SCH (10:54)
[2020-03-25] MEDS: ASCORBIC ACID 1,000 MG TAB PO SCH (10:54)
[2020-03-25] MEDS: INSULIN LANTUS (GLARGINE) 1 /0.01ml (100units/ml) SC SCH ×2 (10:55→21:21)
[2020-03-25] MEDS: FLORASTOR (S. BOULARDII) 250 MG CAP PO SCH ×2 (13:01→20:38)
[2020-03-25 16:00] VITALS: BP 110/78
[2020-03-25] MEDS: HYDROcodone-ACET 5/325MG TAB PO PRN (20:39)
[2020-03-26] VITALS: BP 106/71
[2020-03-26] MEDS: ACCU-CHEK COMFORT CURVE STRIP VI SCH ×5 (00:20→23:32)
[2020-03-26] MEDS: InsuLIN REG 1unit/0.01ml Soln (100units/ml) SC SCH ×5 (00:20→23:31)
[2020-03-26 05:48] LABS: Basophils # (auto) 0.1 10 ^3/uL (0-0.2); Basophils % (auto) 0.7 % (0.0-2.0); Eosinophils # (auto) 0.4 10 ^3/uL (0-0.8); Eosinophils % (auto) 2.2 % (0.0-7.0); Hematocrit 42.4 % (41.0-53.0); Hemoglobin 14.3 g/dL (13.5-17.5); Lymphocytes # (auto) 2.1 10 ^3/uL (0.4-5.4); Lymphocytes % (auto) 13.4 % (10.0-50.0); Mean Corpuscular Hemoglobin 28.9 pg (28.0-32.0); Mean Corpuscular Hgb Conc. 33.8 g/dL (32.0-36.0); Mean Corpuscular Volume 85.6 fL (80.0-100.0); Monocytes # (auto) 0.6 10 ^3/uL (0-1.3); Monocytes % (auto) 4.1 % (0.0-12.0); Neutrophils # (auto) 12.6 10 ^3/uL (1.6-8.6); Neutrophils % (auto) 79.6 % (37.0-80.0); Nucleated Red Blood Cells % 0.2 %; Red Blood Cells 4.95 10^6/uL (4.5-5.90); Red Cell Distribution Width 14.4 % (11.8-14.3); White Blood Cell 15.8 10^3/uL (4.4-10.8)
[2020-03-26 06:22] LABS: INR 1.1 (0.9-1.15); Partial Thromboplastin Time 28.3 sec (23.0-31.2)
[2020-03-26 06:23] LABS: Potassium 3.7 mmol/L (3.5-5.1)
[2020-03-26 06:40] LABS: Albumin 2.5 g/dL (3.4-5.0); BUN/Creatinine Ratio 23.9; Bilirubin, Total 0.4 mg/dL (0.2-1.0); Calcium 8.4 mg/dL (8.5-10.1); Magnesium 1.9 mg/dL (1.6-2.6); Phosphorus 2.9 mg/dL (2.5-4.90); Total Protein 6.2 g/dL (6.4-8.2)
[2020-03-26] MEDS: BUDESONIDE (INHALATION) 180 MCG IH IN SCH ×2 (06:53→18:48)
[2020-03-26] MEDS: PIPERACILLIN-TAZO 4.5GM 100 ML IV SCH ×3 (07:03→20:57)
[2020-03-26 08:00] VITALS: BP 130/80
[2020-03-26] MEDS ORDERED: FUROSEMIDE 20 MG/2 ML VIAL IV SCH (10:00)
[2020-03-26] MEDS: FLORASTOR (S. BOULARDII) 250 MG CAP PO SCH ×2 (10:00→20:56)
[2020-03-26] MEDS: DexAMETHasone SOD PHOS 10MG/1ML VIAL INJ IV SCH (10:32)
[2020-03-26] MEDS: POTASSIUM CHLORIDE 8 MEQ TAB PO SCH (10:33)
[2020-03-26] MEDS: amLODIPine BESYLATE 5 MG TAB PO SCH (10:33)
[2020-03-26] MEDS: ZINC SULFATE 220mg CAP or TAB PO SCH (10:33)
[2020-03-26] MEDS: ASCORBIC ACID 1,000 MG TAB PO SCH (10:34)
[2020-03-26] MEDS: ENOXAPARIN SOD 40 MG/0.4 ML SYRINGE SC SCH ×2 (10:34→20:56)
[2020-03-26] MEDS: INSULIN LANTUS (GLARGINE) 1 /0.01ml (100units/ml) SC SCH ×2 (10:35→21:09)
[2020-03-26] MEDS ORDERED: POLYETHYLENE GLYCOL 17 GM PWDR PO ONE (15:30)
[2020-03-26] MEDS ORDERED: BISACODYL 5 MG EC TAB PO ONE (15:30)
[2020-03-26 16:00] VITALS: BP 118/86
[2020-03-26] MEDS: SALINE 0.65 % NASAL SPRAY 45ML BOTTLE EACHNOSTRI SCH ×2 (17:43→20:57)
[2020-03-26] MEDS: ALBUTEROL SULF HFA 90MCG INH 200DOSE IN PRN (18:48)
[2020-03-27] VITALS: BP 106/77
[2020-03-27] MEDS: SALINE 0.65 % NASAL SPRAY 45ML BOTTLE EACHNOSTRI SCH ×4 (05:52→21:26)
[2020-03-27] MEDS: PIPERACILLIN-TAZO 4.5GM 100 ML IV SCH ×3 (05:52→21:26)
[2020-03-27] MEDS: InsuLIN REG 1unit/0.01ml Soln (100units/ml) SC SCH ×4 (05:52→23:47)
[2020-03-27] MEDS: ACCU-CHEK COMFORT CURVE STRIP VI SCH ×4 (05:52→23:35)
[2020-03-27 08:00] VITALS: BP 111/75
[2020-03-27] MEDS: BUDESONIDE (INHALATION) 180 MCG IH IN SCH ×2 (10:17→19:14)
[2020-03-27] MEDS: ALBUTEROL SULF HFA 90MCG INH 200DOSE IN PRN ×2 (10:17→19:14)
[2020-03-27] MEDS: DexAMETHasone SOD PHOS 10MG/1ML VIAL INJ IV SCH (11:18)
[2020-03-27] MEDS: ZINC SULFATE 220mg CAP or TAB PO SCH (11:18)
[2020-03-27] MEDS: POTASSIUM CHLORIDE 8 MEQ TAB PO SCH (11:18)
[2020-03-27] MEDS: amLODIPine BESYLATE 5 MG TAB PO SCH (11:19)
[2020-03-27] MEDS: ASCORBIC ACID 1,000 MG TAB PO SCH (11:19)
[2020-03-27] MEDS: INSULIN LANTUS (GLARGINE) 1 /0.01ml (100units/ml) SC SCH ×2 (11:20→21:27)
[2020-03-27] MEDS: FLORASTOR (S. BOULARDII) 250 MG CAP PO SCH ×2 (12:39→21:26)
[2020-03-27] MEDS: ENOXAPARIN SOD 40 MG/0.4 ML SYRINGE SC SCH ×2 (12:40→21:26)
[2020-03-27] MEDS: FUROSEMIDE 40 MG/4 ML VIAL IV SCH (12:40)
[2020-03-27 16:00] VITALS: BP 125/98
[2020-03-27] MEDS: HYDROcodone-ACET 5/325MG TAB PO PRN (23:39)
[2020-03-28] VITALS: BP 137/94
[2020-03-28] MEDS: InsuLIN REG 1unit/0.01ml Soln (100units/ml) SC SCH ×3 (06:00→17:10)
[2020-03-28] MEDS: PIPERACILLIN-TAZO 4.5GM 100 ML IV SCH ×3 (06:16→21:35)
[2020-03-28] MEDS: ACCU-CHEK COMFORT CURVE STRIP VI SCH ×3 (06:16→17:08)
[2020-03-28] MEDS: SALINE 0.65 % NASAL SPRAY 45ML BOTTLE EACHNOSTRI SCH ×4 (06:16→21:35)
[2020-03-28] MEDS: ALBUTEROL SULF HFA 90MCG INH 200DOSE IN PRN ×2 (06:17→21:51)
[2020-03-28] MEDS: BUDESONIDE (INHALATION) 180 MCG IH IN SCH ×2 (06:17→21:51)
[2020-03-28 08:00] VITALS: BP 124/84
[2020-03-28] MEDS: DexAMETHasone SOD PHOS 10MG/1ML VIAL INJ IV SCH (09:52)
[2020-03-28] MEDS: POTASSIUM CHLORIDE 8 MEQ TAB PO SCH (09:53)
[2020-03-28] MEDS: FLORASTOR (S. BOULARDII) 250 MG CAP PO SCH ×2 (09:53→21:35)
[2020-03-28] MEDS: FUROSEMIDE 40 MG/4 ML VIAL IV SCH (09:53)
[2020-03-28] MEDS: ZINC SULFATE 220mg CAP or TAB PO SCH (09:53)
[2020-03-28] MEDS: amLODIPine BESYLATE 5 MG TAB PO SCH (09:54)
[2020-03-28] MEDS: ASCORBIC ACID 1,000 MG TAB PO SCH (09:54)
[2020-03-28] MEDS: ENOXAPARIN SOD 40 MG/0.4 ML SYRINGE SC SCH ×2 (09:54→21:36)
[2020-03-28] MEDS: INSULIN LANTUS (GLARGINE) 1 /0.01ml (100units/ml) SC SCH ×2 (11:14→22:04)
[2020-03-28 16:00] VITALS: BP 122/86
[2020-03-28] MEDS: HYDROcodone-ACET 5/325MG TAB PO PRN (21:36)
[2020-03-29] VITALS: BP 111/86
[2020-03-29] MEDS: ACCU-CHEK COMFORT CURVE STRIP VI SCH ×4 (00:29→17:10)
[2020-03-29] MEDS: SALINE 0.65 % NASAL SPRAY 45ML BOTTLE EACHNOSTRI SCH ×4 (06:00→22:00)
[2020-03-29] MEDS: InsuLIN REG 1unit/0.01ml Soln (100units/ml) SC SCH ×4 (06:00→17:07)
[2020-03-29] MEDS: PIPERACILLIN-TAZO 4.5GM 100 ML IV SCH ×3 (06:30→22:00)
[2020-03-29] MEDS: ALBUTEROL SULF HFA 90MCG INH 200DOSE IN PRN ×2 (06:42→19:41)
[2020-03-29] MEDS: BUDESONIDE (INHALATION) 180 MCG IH IN SCH ×2 (06:42→19:41)
[2020-03-29 06:51] LABS: Basophils # (auto) 0 10 ^3/uL (0-0.2); Basophils % (auto) 0.2 % (0.0-2.0); Eosinophils # (auto) 0.1 10 ^3/uL (0-0.8); Eosinophils % (auto) 0.8 % (0.0-7.0); Hemoglobin 13.8 g/dL (13.5-17.5); Lymphocytes # (auto) 1.9 10 ^3/uL (0.4-5.4); Lymphocytes % (auto) 13.8 % (10.0-50.0); Mean Corpuscular Hemoglobin 28.9 pg (28.0-32.0); Mean Corpuscular Hgb Conc. 33.7 g/dL (32.0-36.0); Mean Corpuscular Volume 85.9 fL (80.0-100.0); Monocytes # (auto) 0.7 10 ^3/uL (0-1.3); Monocytes % (auto) 5.1 % (0.0-12.0); Neutrophils # (auto) 11.1 10 ^3/uL (1.6-8.6); Neutrophils % (auto) 80.1 % (37.0-80.0); Red Blood Cells 4.77 10^6/uL (4.5-5.90); Red Cell Distribution Width 14.6 % (11.8-14.3); White Blood Cell 13.9 10^3/uL (4.4-10.8)
[2020-03-29 07:08] LABS: Potassium 3.7 mmol/L (3.5-5.1)
[2020-03-29 07:12] LABS: INR 1.06 (0.9-1.15); Partial Thromboplastin Time 27.9 sec (23.0-31.2)
[2020-03-29 07:31] LABS: Albumin 2.6 g/dL (3.4-5.0); BUN/Creatinine Ratio 22.3; Bilirubin, Total 0.5 mg/dL (0.2-1.0); Calcium 8.3 mg/dL (8.5-10.1); Magnesium 2.1 mg/dL (1.6-2.6); Phosphorus 2.8 mg/dL (2.5-4.90); Total Protein 5.9 g/dL (6.4-8.2)
[2020-03-29 07:55] VITALS: BP 115/86
[2020-03-29] MEDS: DexAMETHasone SOD PHOS 10MG/1ML VIAL INJ IV SCH (09:18)
[2020-03-29] MEDS: FLORASTOR (S. BOULARDII) 250 MG CAP PO SCH ×2 (09:18→22:00)
[2020-03-29] MEDS: ZINC SULFATE 220mg CAP or TAB PO SCH (09:18)
[2020-03-29] MEDS: ASCORBIC ACID 1,000 MG TAB PO SCH (09:18)
[2020-03-29] MEDS: FUROSEMIDE 40 MG/4 ML VIAL IV SCH (09:19)
[2020-03-29] MEDS: POTASSIUM CHLORIDE 8 MEQ TAB PO SCH (09:19)
[2020-03-29] MEDS: amLODIPine BESYLATE 5 MG TAB PO SCH (09:19)
[2020-03-29] MEDS: ENOXAPARIN SOD 40 MG/0.4 ML SYRINGE SC SCH ×2 (09:20→22:00)
[2020-03-29] MEDS: INSULIN LANTUS (GLARGINE) 1 /0.01ml (100units/ml) SC SCH ×2 (11:13→22:14)
[2020-03-29] MEDS: ERGOCALCIFEROL 50,000 UNIT(1.25MG) CAP PO SCH (14:39)
[2020-03-29 15:50] VITALS: BP 117/76
[2020-03-29] MEDS: HYDROcodone-ACET 5/325MG TAB PO PRN (19:37)
[2020-03-30] VITALS: BP 119/92
[2020-03-30] MEDS: SALINE 0.65 % NASAL SPRAY 45ML BOTTLE EACHNOSTRI SCH ×4 (06:36→19:32)
[2020-03-30] MEDS: PIPERACILLIN-TAZO 4.5GM 100 ML IV SCH ×3 (06:36→22:26)
[2020-03-30] MEDS: ACCU-CHEK COMFORT CURVE STRIP VI SCH ×5 (06:37→23:48)
[2020-03-30] MEDS: InsuLIN REG 1unit/0.01ml Soln (100units/ml) SC SCH ×5 (06:43→23:48)
[2020-03-30 08:00] VITALS: BP 119/80
[2020-03-30] MEDS: ZINC SULFATE 220mg CAP or TAB PO SCH (09:01)
[2020-03-30] MEDS: amLODIPine BESYLATE 5 MG TAB PO SCH (09:01)
[2020-03-30] MEDS: ASCORBIC ACID 1,000 MG TAB PO SCH (09:02)
[2020-03-30] MEDS: DexAMETHasone SOD PHOS 10MG/1ML VIAL INJ IV SCH (09:02)
[2020-03-30] MEDS: FLORASTOR (S. BOULARDII) 250 MG CAP PO SCH ×2 (09:02→22:26)
[2020-03-30] MEDS: POTASSIUM CHLORIDE 8 MEQ TAB PO SCH (09:02)
[2020-03-30] MEDS: FUROSEMIDE 40 MG/4 ML VIAL IV SCH (09:02)
[2020-03-30] MEDS: ENOXAPARIN SOD 40 MG/0.4 ML SYRINGE SC SCH ×2 (09:02→22:00)
[2020-03-30] MEDS: BUDESONIDE (INHALATION) 180 MCG IH IN SCH ×2 (10:00→19:32)
[2020-03-30] MEDS: ALBUTEROL SULF HFA 90MCG INH 200DOSE IN PRN ×2 (10:37→19:32)
[2020-03-30] MEDS: INSULIN LANTUS (GLARGINE) 1 /0.01ml (100units/ml) SC SCH ×2 (11:24→22:00)
[2020-03-30 16:00] VITALS: BP 101/74
[2020-03-31] VITALS: BP 121/92
[2020-03-31] MEDS: ACCU-CHEK COMFORT CURVE STRIP VI SCH ×3 (05:52→18:20)
[2020-03-31] MEDS: SALINE 0.65 % NASAL SPRAY 45ML BOTTLE EACHNOSTRI SCH ×4 (05:52→22:30)
[2020-03-31] MEDS: PIPERACILLIN-TAZO 4.5GM 100 ML IV SCH ×3 (05:52→23:55)
[2020-03-31] MEDS: BUDESONIDE (INHALATION) 180 MCG IH IN SCH ×2 (05:56→22:30)
[2020-03-31] MEDS: ALBUTEROL SULF HFA 90MCG INH 200DOSE IN PRN (05:57)
[2020-03-31] MEDS: InsuLIN REG 1unit/0.01ml Soln (100units/ml) SC SCH ×3 (06:00→18:29)
[2020-03-31 08:00] VITALS: BP 131/90
[2020-03-31] MEDS: INSULIN LANTUS (GLARGINE) 1 /0.01ml (100units/ml) SC SCH ×2 (10:00→22:45)
[2020-03-31] MEDS: FUROSEMIDE 40 MG/4 ML VIAL IV SCH (10:00)
[2020-03-31] MEDS: FLORASTOR (S. BOULARDII) 250 MG CAP PO SCH ×2 (11:08→22:30)
[2020-03-31] MEDS: ZINC SULFATE 220mg CAP or TAB PO SCH (11:08)
[2020-03-31] MEDS: ASCORBIC ACID 1,000 MG TAB PO SCH (11:09)
[2020-03-31] MEDS: POTASSIUM CHLORIDE 8 MEQ TAB PO SCH (11:10)
[2020-03-31] MEDS: ENOXAPARIN SOD 40 MG/0.4 ML SYRINGE SC SCH ×2 (11:10→22:31)
[2020-03-31] MEDS: amLODIPine BESYLATE 5 MG TAB PO SCH (11:21)
[2020-03-31 16:00] VITALS: BP 123/85
[2020-04-01] VITALS: BP 119/82
[2020-04-01] MEDS: ACCU-CHEK COMFORT CURVE STRIP VI SCH ×4 (00:17→17:43)
[2020-04-01] MEDS: InsuLIN REG 1unit/0.01ml Soln (100units/ml) SC SCH ×4 (06:00→17:57)
[2020-04-01] MEDS: SALINE 0.65 % NASAL SPRAY 45ML BOTTLE EACHNOSTRI SCH ×4 (06:43→22:42)
[2020-04-01 08:00] VITALS: BP 131/88
[2020-04-01] MEDS: amLODIPine BESYLATE 5 MG TAB PO SCH (10:00)
[2020-04-01] MEDS: BUDESONIDE (INHALATION) 180 MCG IH IN SCH ×2 (10:00→19:56)
[2020-04-01] MEDS: INSULIN LANTUS (GLARGINE) 1 /0.01ml (100units/ml) SC SCH ×2 (10:00→22:25)
[2020-04-01] MEDS: ZINC SULFATE 220mg CAP or TAB PO SCH (11:18)
[2020-04-01] MEDS: FLORASTOR (S. BOULARDII) 250 MG CAP PO SCH ×2 (11:19→22:25)
[2020-04-01] MEDS: ASCORBIC ACID 1,000 MG TAB PO SCH (11:20)
[2020-04-01] MEDS: POTASSIUM CHLORIDE 8 MEQ TAB PO SCH (11:20)
[2020-04-01] MEDS: ENOXAPARIN SOD 40 MG/0.4 ML SYRINGE SC SCH ×2 (11:20→22:25)
[2020-04-01] MEDS: FUROSEMIDE 40 MG/4 ML VIAL IV SCH (11:48)
[2020-04-01] MEDS: ALBUTEROL SULF HFA 90MCG INH 200DOSE IN PRN ×2 (13:27→19:57)
[2020-04-01] MEDS: PIPERACILLIN-TAZO 4.5GM 100 ML IV SCH ×2 (15:00→22:25)
[2020-04-01 16:00] VITALS: BP 121/78
[2020-04-02] VITALS: BP 110/82
[2020-04-02] MEDS: ACCU-CHEK COMFORT CURVE STRIP VI SCH ×4 (00:29→18:13)
[2020-04-02] MEDS: InsuLIN REG 1unit/0.01ml Soln (100units/ml) SC SCH ×4 (05:45→18:00)
[2020-04-02] MEDS: PIPERACILLIN-TAZO 4.5GM 100 ML IV SCH ×3 (05:45→21:30)
[2020-04-02] MEDS: SALINE 0.65 % NASAL SPRAY 45ML BOTTLE EACHNOSTRI SCH ×4 (06:45→21:30)
[2020-04-02 08:00] VITALS: BP 133/76
[2020-04-02] MEDS: INSULIN LANTUS (GLARGINE) 1 /0.01ml (100units/ml) SC SCH ×2 (10:00→21:52)
[2020-04-02] MEDS: amLODIPine BESYLATE 5 MG TAB PO SCH (10:00)
[2020-04-02] MEDS: ALBUTEROL SULF HFA 90MCG INH 200DOSE IN PRN (10:08)
[2020-04-02] MEDS: BUDESONIDE (INHALATION) 180 MCG IH IN SCH ×2 (10:08→18:40)
[2020-04-02] MEDS: ZINC SULFATE 220mg CAP or TAB PO SCH (10:27)
[2020-04-02] MEDS: ASCORBIC ACID 1,000 MG TAB PO SCH (10:27)
[2020-04-02] MEDS: FLORASTOR (S. BOULARDII) 250 MG CAP PO SCH ×2 (10:27→21:31)
[2020-04-02] MEDS: ENOXAPARIN SOD 40 MG/0.4 ML SYRINGE SC SCH ×2 (10:28→21:31)
[2020-04-02] MEDS: POTASSIUM CHLORIDE 8 MEQ TAB PO SCH (10:29)
[2020-04-02] MEDS: FUROSEMIDE 40 MG/4 ML VIAL IV SCH (10:49)
[2020-04-02 15:30] VITALS: BP 125/87
[2020-04-03] VITALS: BP 114/83
[2020-04-03] MEDS: ACCU-CHEK COMFORT CURVE STRIP VI SCH ×4 (00:17→17:33)
[2020-04-03] MEDS: InsuLIN REG 1unit/0.01ml Soln (100units/ml) SC SCH ×4 (00:18→17:33)
[2020-04-03] MEDS: SALINE 0.65 % NASAL SPRAY 45ML BOTTLE EACHNOSTRI SCH ×4 (05:49→21:34)
[2020-04-03] MEDS: PIPERACILLIN-TAZO 4.5GM 100 ML IV SCH ×3 (05:49→21:34)
[2020-04-03] MEDS: BUDESONIDE (INHALATION) 180 MCG IH IN SCH ×2 (06:10→19:48)
[2020-04-03 08:00] VITALS: BP_SYST 119; BP_SYST 191; BP_DIAS 87
[2020-04-03] MEDS: ASCORBIC ACID 1,000 MG TAB PO SCH (10:23)
[2020-04-03] MEDS: ZINC SULFATE 220mg CAP or TAB PO SCH (10:23)
[2020-04-03] MEDS: FLORASTOR (S. BOULARDII) 250 MG CAP PO SCH ×2 (10:23→21:34)
[2020-04-03] MEDS: amLODIPine BESYLATE 5 MG TAB PO SCH (10:24)
[2020-04-03] MEDS: POTASSIUM CHLORIDE 8 MEQ TAB PO SCH (10:24)
[2020-04-03] MEDS: INSULIN LANTUS (GLARGINE) 1 /0.01ml (100units/ml) SC SCH ×2 (10:25→21:39)
[2020-04-03] MEDS: FUROSEMIDE 40 MG/4 ML VIAL IV SCH (10:25)
[2020-04-03] MEDS: ENOXAPARIN SOD 40 MG/0.4 ML SYRINGE SC SCH ×2 (10:25→21:34)
[2020-04-03 16:00] VITALS: BP 117/79
[2020-04-03] MEDS: ALBUTEROL SULF HFA 90MCG INH 200DOSE IN PRN (19:48)
[2020-04-04] VITALS: BP 106/77
[2020-04-04] MEDS: ACCU-CHEK COMFORT CURVE STRIP VI SCH ×4 (00:12→18:00)
[2020-04-04] MEDS: InsuLIN REG 1unit/0.01ml Soln (100units/ml) SC SCH ×4 (05:44→18:00)
[2020-04-04] MEDS: PIPERACILLIN-TAZO 4.5GM 100 ML IV SCH ×3 (05:44→21:19)
[2020-04-04] MEDS: SALINE 0.65 % NASAL SPRAY 45ML BOTTLE EACHNOSTRI SCH ×4 (05:44→21:19)
[2020-04-04] MEDS: ALBUTEROL SULF HFA 90MCG INH 200DOSE IN PRN ×2 (06:42→19:32)
[2020-04-04] MEDS: BUDESONIDE (INHALATION) 180 MCG IH IN SCH ×2 (06:42→19:32)
[2020-04-04 08:00] VITALS: BP 114/77
[2020-04-04] MEDS: ASCORBIC ACID 1,000 MG TAB PO SCH (10:06)
[2020-04-04] MEDS: POTASSIUM CHLORIDE 8 MEQ TAB PO SCH (10:06)
[2020-04-04] MEDS: ENOXAPARIN SOD 40 MG/0.4 ML SYRINGE SC SCH ×2 (10:06→21:20)
[2020-04-04] MEDS: amLODIPine BESYLATE 5 MG TAB PO SCH (10:06)
[2020-04-04] MEDS: FLORASTOR (S. BOULARDII) 250 MG CAP PO SCH ×2 (10:06→21:19)
[2020-04-04] MEDS: ZINC SULFATE 220mg CAP or TAB PO SCH (10:06)
[2020-04-04] MEDS: FUROSEMIDE 40 MG/4 ML VIAL IV SCH (10:06)
[2020-04-04] MEDS: INSULIN LANTUS (GLARGINE) 1 /0.01ml (100units/ml) SC SCH ×2 (10:19→21:33)
[2020-04-04 16:00] VITALS: BP 108/78
[2020-04-05] VITALS: BP 107/77
[2020-04-05] MEDS: ACCU-CHEK COMFORT CURVE STRIP VI SCH ×5 (00:09→22:39)
[2020-04-05] MEDS: SALINE 0.65 % NASAL SPRAY 45ML BOTTLE EACHNOSTRI SCH ×4 (05:41→22:31)
[2020-04-05] MEDS: InsuLIN REG 1unit/0.01ml Soln (100units/ml) SC SCH ×6 (05:42→22:48)
[2020-04-05] MEDS: BUDESONIDE (INHALATION) 180 MCG IH IN SCH ×2 (06:05→19:09)
[2020-04-05] MEDS: ALBUTEROL SULF HFA 90MCG INH 200DOSE IN PRN ×2 (06:05→19:09)
[2020-04-05 06:09] LABS: Basophils # (auto) 0.1 10 ^3/uL (0-0.2); Basophils % (auto) 1.8 % (0.0-2.0); Eosinophils # (auto) 0.8 10 ^3/uL (0-0.8); Eosinophils % (auto) 14.8 % (0.0-7.0); Hematocrit 41.1 % (41.0-53.0); Hemoglobin 14.3 g/dL (13.5-17.5); Lymphocytes # (auto) 1.1 10 ^3/uL (0.4-5.4); Lymphocytes % (auto) 20.3 % (10.0-50.0); Mean Corpuscular Hemoglobin 29.9 pg (28.0-32.0); Mean Corpuscular Hgb Conc. 34.7 g/dL (32.0-36.0); Mean Corpuscular Volume 86.2 fL (80.0-100.0); Monocytes # (auto) 0.5 10 ^3/uL (0-1.3); Monocytes % (auto) 9.3 % (0.0-12.0); Neutrophils # (auto) 2.8 10 ^3/uL (1.6-8.6); Neutrophils % (auto) 53.8 % (37.0-80.0); Red Blood Cells 4.77 10^6/uL (4.5-5.90); Red Cell Distribution Width 15.5 % (11.8-14.3); White Blood Cell 5.3 10^3/uL (4.4-10.8)
[2020-04-05 06:31] LABS: Potassium 3.4 mmol/L (3.5-5.1)
[2020-04-05] MEDS: PIPERACILLIN-TAZO 4.5GM 100 ML IV SCH ×3 (06:45→22:32)
[2020-04-05 06:55] LABS: Albumin 2.6 g/dL (3.4-5.0); BUN/Creatinine Ratio 18.3; Bilirubin, Total 0.6 mg/dL (0.2-1.0); Calcium 8.3 mg/dL (8.5-10.1); Magnesium 1.9 mg/dL (1.6-2.6); Total Protein 5.8 g/dL (6.4-8.2)
[2020-04-05 07:31] VITALS: BP 117/77
[2020-04-05] MEDS ORDERED: POTASSIUM CHL 20 Meq TABLET PO ONE (09:15)
[2020-04-05] MEDS: FLORASTOR (S. BOULARDII) 250 MG CAP PO SCH ×2 (09:23→22:32)
[2020-04-05] MEDS: FUROSEMIDE 40 MG/4 ML VIAL IV SCH (09:23)
[2020-04-05] MEDS: ASCORBIC ACID 1,000 MG TAB PO SCH (09:23)
[2020-04-05] MEDS: ZINC SULFATE 220mg CAP or TAB PO SCH (09:23)
[2020-04-05] MEDS: amLODIPine BESYLATE 5 MG TAB PO SCH (09:23)
[2020-04-05] MEDS: ENOXAPARIN SOD 40 MG/0.4 ML SYRINGE SC SCH ×2 (09:24→22:32)
[2020-04-05] MEDS: POTASSIUM CHLORIDE 8 MEQ TAB PO SCH (09:24)
[2020-04-05] MEDS: INSULIN LANTUS (GLARGINE) 1 /0.01ml (100units/ml) SC SCH ×2 (09:37→22:33)
[2020-04-05] MEDS: ERGOCALCIFEROL 50,000 UNIT(1.25MG) CAP PO SCH (15:01)
[2020-04-05 16:04] VITALS: BP 111/77
[2020-04-05] MEDS: HYDROcodone-ACET 5/325MG TAB PO PRN (22:42)
[2020-04-06] VITALS: BP 116/84
[2020-04-06] MEDS: InsuLIN REG 1unit/0.01ml Soln (100units/ml) SC SCH ×3 (06:00→17:58)
[2020-04-06] MEDS: BUDESONIDE (INHALATION) 180 MCG IH IN SCH ×2 (06:10→18:37)
[2020-04-06] MEDS: ALBUTEROL SULF HFA 90MCG INH 200DOSE IN PRN ×2 (06:10→18:37)
[2020-04-06] MEDS: ACCU-CHEK COMFORT CURVE STRIP VI SCH ×3 (06:18→17:58)
[2020-04-06] MEDS: PIPERACILLIN-TAZO 4.5GM 100 ML IV SCH ×3 (06:19→22:00)
[2020-04-06] MEDS: SALINE 0.65 % NASAL SPRAY 45ML BOTTLE EACHNOSTRI SCH ×4 (06:19→22:00)
[2020-04-06 08:00] VITALS: BP 111/79
[2020-04-06] MEDS: ZINC SULFATE 220mg CAP or TAB PO SCH (09:35)
[2020-04-06] MEDS: POTASSIUM CHLORIDE 8 MEQ TAB PO SCH (09:37)
[2020-04-06] MEDS: ASCORBIC ACID 1,000 MG TAB PO SCH (09:37)
[2020-04-06] MEDS: FLORASTOR (S. BOULARDII) 250 MG CAP PO SCH ×2 (09:37→22:00)
[2020-04-06] MEDS: amLODIPine BESYLATE 5 MG TAB PO SCH (09:38)
[2020-04-06] MEDS: ENOXAPARIN SOD 40 MG/0.4 ML SYRINGE SC SCH ×2 (09:38→22:01)
[2020-04-06] MEDS: FUROSEMIDE 40 MG/4 ML VIAL IV SCH (09:38)
[2020-04-06] MEDS: INSULIN LANTUS (GLARGINE) 1 /0.01ml (100units/ml) SC SCH ×2 (12:23→22:01)
[2020-04-06 15:55] VITALS: BP 104/76
[2020-04-07] VITALS: BP 104/66
[2020-04-07] MEDS: ACCU-CHEK COMFORT CURVE STRIP VI SCH ×5 (05:46→23:52)
[2020-04-07] MEDS: PIPERACILLIN-TAZO 4.5GM 100 ML IV SCH (05:50)
[2020-04-07] MEDS: SALINE 0.65 % NASAL SPRAY 45ML BOTTLE EACHNOSTRI SCH ×4 (05:50→22:16)
[2020-04-07] MEDS: InsuLIN REG 1unit/0.01ml Soln (100units/ml) SC SCH ×5 (06:00→23:52)
[2020-04-07] MEDS: ALBUTEROL SULF 2.5 MG/0.5ML(0.5%) NEB SOLN NEB PRN (06:50)
[2020-04-07] MEDS: BUDESONIDE (INHALATION) 180 MCG IH IN SCH ×2 (06:50→18:40)
[2020-04-07 08:00] VITALS: BP 106/78
[2020-04-07] MEDS: FUROSEMIDE 40 MG/4 ML VIAL IV SCH (09:10)
[2020-04-07] MEDS: ZINC SULFATE 220mg CAP or TAB PO SCH (09:11)
[2020-04-07] MEDS: POTASSIUM CHLORIDE 8 MEQ TAB PO SCH (09:11)
[2020-04-07] MEDS: amLODIPine BESYLATE 5 MG TAB PO SCH (09:11)
[2020-04-07] MEDS: FLORASTOR (S. BOULARDII) 250 MG CAP PO SCH ×2 (09:11→22:16)
[2020-04-07] MEDS: ASCORBIC ACID 1,000 MG TAB PO SCH (09:12)
[2020-04-07] MEDS: INSULIN LANTUS (GLARGINE) 1 /0.01ml (100units/ml) SC SCH ×2 (09:25→22:00)
[2020-04-07] MEDS: ENOXAPARIN SOD 40 MG/0.4 ML SYRINGE SC SCH ×2 (13:27→22:16)
[2020-04-07 16:00] VITALS: BP 120/96
[2020-04-08] VITALS: BP 107/76
[2020-04-08] MEDS: InsuLIN REG 1unit/0.01ml Soln (100units/ml) SC SCH ×3 (06:00→17:38)
[2020-04-08 06:08] LABS: Basophils # (auto) 0.1 10 ^3/uL (0-0.2); Eosinophils # (auto) 0.6 10 ^3/uL (0-0.8); Eosinophils % (auto) 10.7 % (0.0-7.0); Hematocrit 39.9 % (41.0-53.0); Hemoglobin 13.7 g/dL (13.5-17.5); Lymphocytes # (auto) 1.4 10 ^3/uL (0.4-5.4); Lymphocytes % (auto) 26.4 % (10.0-50.0); Mean Corpuscular Hemoglobin 29.5 pg (28.0-32.0); Mean Corpuscular Hgb Conc. 34.5 g/dL (32.0-36.0); Mean Corpuscular Volume 85.6 fL (80.0-100.0); Monocytes # (auto) 0.5 10 ^3/uL (0-1.3); Monocytes % (auto) 10.3 % (0.0-12.0); Neutrophils # (auto) 2.7 10 ^3/uL (1.6-8.6); Neutrophils % (auto) 51.6 % (37.0-80.0); Nucleated Red Blood Cells % 0.1 %; Red Blood Cells 4.66 10^6/uL (4.5-5.90); Red Cell Distribution Width 15.3 % (11.8-14.3); White Blood Cell 5.3 10^3/uL (4.4-10.8)
[2020-04-08] MEDS: SALINE 0.65 % NASAL SPRAY 45ML BOTTLE EACHNOSTRI SCH ×3 (06:14→17:30)
[2020-04-08] MEDS: ACCU-CHEK COMFORT CURVE STRIP VI SCH ×3 (06:14→17:30)
[2020-04-08] MEDS: BUDESONIDE (INHALATION) 180 MCG IH IN SCH (07:10)
[2020-04-08 08:00] VITALS: BP 124/82
[2020-04-08] MEDS: ALBUTEROL SULF 2.5 MG/0.5ML(0.5%) NEB SOLN NEB PRN (09:27)
[2020-04-08] MEDS: FLORASTOR (S. BOULARDII) 250 MG CAP PO SCH (10:11)
[2020-04-08] MEDS: ENOXAPARIN SOD 40 MG/0.4 ML SYRINGE SC SCH (10:11)
[2020-04-08] MEDS: INSULIN LANTUS (GLARGINE) 1 /0.01ml (100units/ml) SC SCH (10:19)
[2020-04-08 16:00] VITALS: BP 122/99
[2020-04-08 18:14] VITALS: BP 106/78
== END 2020-04-08 20:15 | disposition home or self-care (01) | DRG 871 ==
LOC: ER 16:36 → EDBD 16:36 → TELE 03-08 00:26 → TELE-EAST 03-09 04:32 → TELE-E-ADS 03-20 08:48 → TELE-EAST 04-07 10:53
PROVIDERS: ADMIT Nurse Practitioner Acute Care; ATTEND Internal Medicine
PROC: XW033E5 Introduction of Remdesivir Anti-infective into Peripheral Vein, Percutaneous Approach, New Technology Group 5 (ICD-10-PCS; 2020-03-09)
PROC: XW13325 Transfusion of Convalescent Plasma (Nonautologous) into Peripheral Vein, Percutaneous Approach, New Technology Group 5 (ICD-10-PCS; principal; 2020-03-11)
PROC: XW033H5 Introduction of Tocilizumab into Peripheral Vein, Percutaneous Approach, New Technology Group 5 (ICD-10-PCS; 2020-03-20)
PROC: 5A0935A Assistance with Respiratory Ventilation, Less than 24 Consecutive Hours, High Flow/Velocity Cannula (ICD-10-PCS; 2020-03-24)
DX: A41.89 Other specified sepsis (principal); U07.1 COVID-19; J12.82 Pneumonia due to coronavirus disease 2019; J96.01 Acute respiratory failure with hypoxia; N17.0 Acute kidney failure with tubular necrosis; D89.834 Cytokine release syndrome, grade 4; E11.22 Type 2 diabetes mellitus with diabetic chronic kidney disease; E55.9 Vitamin D deficiency, unspecified; E66.9 Obesity, unspecified; E11.65 Type 2 diabetes mellitus with hyperglycemia; I12.9 Hypertensive chronic kidney disease with stage 1 through stage 4 chronic kidney disease, or unspecified chronic kidney disease; R65.20 Severe sepsis without septic shock; Z86.73 Personal history of transient ischemic attack (TIA), and cerebral infarction without residual deficits; Z68.29 Body mass index [BMI] 29.0-29.9, adult; N18.32 Chronic kidney disease, stage 3b
CPT/HCPCS: 36415; 36600; 71045; 71250; 76705; 80048; 80053; 80307; 80320; 81001; 82306; 82570; 82728; 82805; 82962; 83036; 83605; 83615; 83735; 83880; 84100; 84132; 84300; 84443; 85025; 85379; 85610; 85730; 86141; 86850; 86900; 86901; 87040; 87070; 87081; 87205; 87426; 93005; 94640; G0378; J1100; J1815; J2405; J2543; J3490

== ENCOUNTER → 2020-10-19 | Outpatient (CLI) | payer MEDICARE, MEDICAID ==
[~2020-10-19] MED LIST: ASPI-543 PO; METF-371 PO
[2020-10-19 11:34] LABS: Cholesterol 140 mg/dL (< 200); HDL Cholesterol 31 mg/dL (40-59); LDL Cholesterol 76 mg/dL (< 100); Triglycerides 248 mg/dL (< 150)
== END | disposition home or self-care (01) ==
LOC: LAB 08:26
PROVIDERS: ATTEND Internal Medicine
DX: E78.5 Hyperlipidemia, unspecified (principal)
CPT/HCPCS: 36415; 80061